=== PATIENT | male | born 1970 | race Caucasian/White ===

== ENCOUNTER → 2019-10-21 | Outpatient (CLI) | payer OTHER ==
[2019-10-21 08:31] LABS: CHOLESTEROL 227 MG/DL (< 200); GLUCOSE FASTING 97 MG/DL (70-105); HDL CHOLESTEROL 30 MG/DL (40-60); TRIGLYCERIDES 585 MG/DL (<150)
== END ==
LOC: LAB 07:58
PROVIDERS: ATTEND Student in an Organized Health Care Education/Training Program
DX: Z01.812 Encounter for preprocedural laboratory examination (principal)
CPT/HCPCS: 36415; 80061; 82947

== ENCOUNTER → 2022-01-17 | Outpatient (CLI) | payer OTHER | LOC: LAB FS 15:21 | PROVIDERS: ATTEND Student in an Organized Health Care Education/Training Program | DX: Z20.822 Contact with and (suspected) exposure to COVID-19 (principal) | CPT/HCPCS: 87635; 87636 ==

== ENCOUNTER → 2022-03-18 | Outpatient (CLI) | payer OTHER | LOC: LAB FS 07:09 | PROVIDERS: ATTEND Student in an Organized Health Care Education/Training Program | DX: Z20.822 Contact with and (suspected) exposure to COVID-19 (principal) | CPT/HCPCS: 87636 ==